=== PATIENT | female | born 1945 | race Caucasian/White ===

== ENCOUNTER 2018-06-13 23:02 | Emergency (ER) | payer MEDICARE, BC ==
[2018-06-13 23:02] VITALS: BMI 31.1
[2018-06-14] MEDS ORDERED: Sodium Chloride 0.9% 1,000 ML ONE (00:35)
--- NOTE | 2018-06-14 00:39 | C.PDOC ---
History Of Present Illness <Margy Morris - Last Filed: 06/14/18 00:39> <Jesus Bhakta - Last Filed: 06/14/18 02:31> 72 year old female presents to the ER after having a slip and fall 1 hour [employer]. Patient landed on her outstretched right arm which caused her to injury her right shoulder. Denies neck pain, headache, weakness, numbness, or other injuries. (Margy Morris) History Per: Patient History/Exam Limitations: no limitations Onset/Duration Of Symptoms: Hrs Current Symptoms Are (Timing): Still Present Exacerbating Factor(s): Strenuous Use Of Affected Area Recent travel outside of the [place]: No <Margy Morris - Last Filed: 06/14/18 00:39> <Jesus Bhakta - Last Filed: 06/14/18 02:31> Time Seen by Provider: 06/13/18 23:04 Chief Complaint (Nursing): Upper Extremity Problem/Injury Past Medical History Reviewed: Historical Data, Nursing Documentation, Vital Signs - Medical History PMH: Arthritis, Bronchitis, Depression, Gastritis, Gastrointestinal Ulcer, Osteoporosis Surgical History: Cholecystectomy, Endoscopy Family History: States: Unknown Family Hx - Social History Hx Tobacco Use: No Hx Alcohol Use: Yes Hx Substance Use: No - Immunization History Hx Tetanus Toxoid Vaccination: No Hx Influenza Vaccination: No <Margy Morris - Last Filed: 06/14/18 00:39> Vital Signs: Last Vital Signs Temp 98.0 F 06/14/18 02:00 Pulse 68 06/14/18 02:00 Resp 16 06/14/18 02:00 BP 145/82 06/14/18 02:00 Pulse Ox 99 06/14/18 02:00 - [facility] Procedures CLOSED ENDOSCOPIC BIOPSY OF LARGE INTESTINE (05/19/14) ESOPHAGOGASTRODUODENOSCOPY [EGD] W/CLOSED BIOPSY (01/19/15) LAPAROSCOPIC CHOLECYSTECTOMY (10/20/13) Review Of Systems Musculoskeletal: Positive for: Shoulder Pain. Negative for: Neck Pain Neurological: Negative for: Weakness, Numbness, Headache <Margy Morris - Last Filed: 06/14/18 00:39> Physical Exam - Physical Exam Appears: Non-toxic Skin: Normal Color, Warm, Dry Head: Atraumatic, Normacephalic Eye(s): bilateral: Normal Inspection Oral Mucosa: Moist Neck: Normal, Supple Chest: Symmetrical, No Tenderness Cardiovascular: Rhythm Regular Respiratory: Normal Breath Sounds, No Rales, No Rhonchi, No Wheezing Gastrointestinal/Abdominal: Soft, No Tenderness Back: No Vertebral Tenderness, No Paraspinal Tenderness Extremity: Capillary Refill (<2 seconds), Other (Tenderness to anterior right shoulder with swelling and deformity) Pulses: Left Radial: Normal, Right Radial: Normal Neurological/Psych: Oriented x3, Normal Speech, Normal Motor, Normal Sensation <Margy Morris - Last Filed: 06/14/18 00:39> ED Course And Treatment O2 Sat by Pulse Oximetry: 98 - Other Rad Right shoulder x-ray X-Ray: Interpreted by Me, Viewed By Me Interpretation: Full complete dislocation of the right shoulder. <Margy Morris - Last Filed: 06/14/18 00:39> Medical Decision Making <Margy Morris - Last Filed: 06/14/18 00:39> <Jesus Bhakta - Last Filed: 06/14/18 02:31> Medical Decision Making: Right shoulder x-ray ordered. Morphine administered. (Margy Morris) Disposition <Margy Morris - Last Filed: 06/14/18 00:39> Counseled Patient/Family Regarding: Diagnosis - Disposition Disposition Time: 02:30 - POA Present On Arrival: None <Jesus Bhakta - Last Filed: 06/14/18 02:31> - Disposition Referrals: [facility] [Outside] Dhiraj Pettit III, MD [Staff Provider] - Disposition: HOME/ ROUTINE Condition: IMPROVED Additional Instructions: Follow up with the Orthopedist within 1-2 days without fail. return if worsened. Prescriptions: Acetaminophen [Tylenol] 325 mg PO Q6 PRN #30 tab PRN Reason: Pain, Mild (1-3) traMADol [Ultram] 50 mg PO Q6 PRN #20 tab PRN Reason: Pain Instructions: Shoulder Dislocation, Moderate Sedation in Adults Forms: [facility] (Sinhala), Gen Discharge Inst Greenlandic - Clinical Impression Clinical Impression: Shoulder dislocation - PA / CAR SPOTTER / Resident Statement MD/DO has reviewed & agrees with the documentation as recorded. - Scribe Statement The provider has reviewed the documentation as recorded by the Scribe <Margy Morris - Last Filed: 06/14/18 00:39> <Jesus Bhakta - Last Filed: 06/14/18 02:31> - Scribe Statement Collin Carmen All medical record entries made by the Scribe were at my direction and personally dictated by me. I have reviewed the chart and agree that the record accurately reflects my personal performance of the history, physical exam, medical decision making, and the department course for this patient. I have also personally directed, reviewed, and agree with the discharge instructions and disposition. (Margy Morris)
[2018-06-14] MEDS ORDERED: Midazolam 2 MG/2 ML VIAL ONE (00:55)
[2018-06-14] MEDS ORDERED: Midazolam 2 MG/2 ML VIAL IVP ONE (00:56)
[2018-06-14] MEDS ORDERED: Propofol 10 mg/ml Inj (20 ML) ONE (00:56)
[2018-06-14] MEDS ORDERED: Morphine 4 MG/ML VIAL ONE (00:56)
[2018-06-14] MEDS ORDERED: Sodium Chloride 0.9% 1,000 ML IV ONE (00:58)
[2018-06-14 02:01] VITALS: BP 145/82; PULSE 68; RESP 16; TEMP 98; O2SAT 99
--- NOTE | 2018-06-14 08:21 | RAD ---
Date of service: 06/14/2018 PROCEDURE: Radiographs of the Right Shoulder HISTORY: post reduction COMPARISON: 06/13/2028 at 11:51 p.m. FINDINGS: BONES: No definite fracture identified. JOINTS: Status post close reduction anterior dislocation. Examination limited to a single view and is of limited sensitivity for the detection of fracture. SOFT TISSUES: Acromioclavicular articulation intact. OTHER FINDINGS: None. IMPRESSION: Successful close reduction. No definite fracture. Limited examination.
--- NOTE | 2018-06-14 08:25 | RAD ---
Date of service: 06/13/2018 PROCEDURE: Radiographs of the Right Shoulder HISTORY: shoulder injury, r/o dislocation COMPARISON: No prior. FINDINGS: BONES: No definite fracture identified. JOINTS: Anterior dislocation at the glenohumeral articulation. Acromioclavicular articulation is intact. SOFT TISSUES: Normal. OTHER FINDINGS: None. IMPRESSION: Anterior glenohumeral dislocation.
== END 2018-06-14 02:31 | disposition home or self-care (01) ==
LOC: C.ER 23:02
DX: S43.084A Other dislocation of right shoulder joint, initial encounter (principal); W01.0XXA Fall on same level from slipping, tripping and stumbling without subsequent striking against object, initial encounter
CPT/HCPCS: 23650; 73030; 94770; 96361; 96372; 96374; 96375; 99285; J2250; J2270; J7030

== ENCOUNTER 2018-12-17 10:40 | Emergency (ER) | payer MEDICARE, BC ==
[2018-12-17 10:40] VITALS: BMI 31.1
[2018-12-17 11:04] VITALS: RESP 20; TEMP 98.2; O2SAT 100
[2018-12-17] MEDS ORDERED: Sodium Chloride 0.9% 500 ML IV STA (11:25)
[2018-12-17] MEDS ORDERED: Morphine 4 MG/ML VIAL IV STA ×2 (11:25→12:34)
[2018-12-17] MEDS ORDERED: Sodium Chloride 0.9% 500 ML IV ONE (11:37)
[2018-12-17] MEDS ORDERED: Morphine 4 MG/ML VIAL ONE ×2 (11:37→12:37)
[2018-12-17] MEDS ORDERED: Lidocaine 2% PF (10 ml) Amp INJ ONE (12:18)
--- NOTE | 2018-12-17 12:24 | C.PDOC ---
History Of Present Illness 73 year old female brought to ED by EMS after falling while exercising with complaint of left should pain and upper lip pain. Patient states she tripped over some cords while exercising. Patient denies any syncope, vomiting, chest pain , and dizziness. <Salomón Beatty - Last Filed: 12/17/18 13:29> <Taye Bueno - Last Filed: 12/17/18 13:07> History Per: Patient History/Exam Limitations: no limitations Onset/Duration Of Symptoms: Mins Current Symptoms Are (Timing): Still Present Quality: "Pain" Additional History Per: EMS <Salomón Beatty - Last Filed: 12/17/18 13:29> Chief Complaint (Nursing): Upper Extremity Problem/Injury Past Medical History Vital Signs: Last Vital Signs Temp 98.2 F 12/17/18 10:56 Pulse 56 L 12/17/18 10:56 Resp 20 12/17/18 10:56 BP 166/90 H 12/17/18 10:56 Pulse Ox 100 12/17/18 10:56 - Medical History PMH: Arthritis, Bronchitis, Depression, Gastritis, Gastrointestinal Ulcer, Osteoporosis Denies: Chronic Kidney Disease Surgical History: Cholecystectomy, Endoscopy - [facility] Procedures CLOSED ENDOSCOPIC BIOPSY OF LARGE INTESTINE (05/19/14) ESOPHAGOGASTRODUODENOSCOPY [EGD] W/CLOSED BIOPSY (01/19/15) LAPAROSCOPIC CHOLECYSTECTOMY (10/20/13) Family History: States: Unknown Family Hx - Social History Hx Tobacco Use: No Hx Alcohol Use: Yes Hx Substance Use: No - Immunization History Hx Tetanus Toxoid Vaccination: Yes Hx Influenza Vaccination: Yes Hx Pneumococcal Vaccination: Yes <Taye Bueno - Last Filed: 12/17/18 13:07> Vital Signs: Last Vital Signs Temp 98.2 F 12/17/18 10:56 Pulse 56 L 12/17/18 10:56 Resp 20 12/17/18 10:56 BP 166/90 H 12/17/18 10:56 Pulse Ox 100 12/17/18 13:08 - [facility] Procedures CLOSED ENDOSCOPIC BIOPSY OF LARGE INTESTINE (05/19/14) ESOPHAGOGASTRODUODENOSCOPY [EGD] W/CLOSED BIOPSY (01/19/15) LAPAROSCOPIC CHOLECYSTECTOMY (10/20/13) <Salomón Beatty - Last Filed: 12/17/18 13:29> ED Course And Treatment O2 Sat by Pulse Oximetry: 100 <Taye Bueno - Last Filed: 12/17/18 13:07> Disposition Counseled Patient/Family Regarding: Diagnosis, Need For Followup <Taye Bueno - Last Filed: 12/17/18 13:07> <Salomón Beatty - Last Filed: 12/17/18 13:29> - Disposition Disposition: HOME/ ROUTINE Condition: IMPROVED Instructions: Shoulder Dislocation (DC) Forms: Gen Discharge Inst Barbadian, [facility] (Barbadian) Print Language: SENEGALESE - Clinical Impression Clinical Impression: Shoulder dislocation
[2018-12-17] MEDS ORDERED: Lidocaine 2% MPF (5 ml) Inj ONE ×2 (12:30→12:37)
--- NOTE | 2018-12-17 13:33 | RAD ---
Date of service: 12/17/2018 PROCEDURE: Radiographs of the Left Shoulder HISTORY: shoulder dislocation COMPARISON: No prior. FINDINGS: BONES: The left humeral head is anteriorly and inferiorly dislocated from the glenoid fossa. No gross fracture appreciated. Inferior glenoid rim cortical hyperostoses noted. JOINTS: Glenohumeral osteoarthrosis. No significant appearing left acromioclavicular joint arthrosis. SOFT TISSUES: Normal. OTHER FINDINGS: There is presence of aortic atherosclerotic calcification on x-ray. The pulmonary vascular markings do appear prominent on this exam-this may in part be technique-correlate clinically. IMPRESSION: Left humeral head anteroinferiorly dislocated from the glenoid fossa. No gross fracture appreciated. Other findings as above.
--- NOTE | 2018-12-17 13:38 | C.PDOC ---
History Of Present Illness 73 year old female brought to ED by EMS after falling while exercising with complaint of left should pain and upper lip injury. Patient states she tripped over some cords while exercising. She denies any syncope, LOC, vomiting, chest pain, and dizziness. Chief Complaint (Nursing): Upper Extremity Problem/Injury History Per: Patient History/Exam Limitations: no limitations Onset/Duration Of Symptoms: Mins Current Symptoms Are (Timing): Still Present Quality: "Pain" (left shoulder pain and upper lip pain) Additional History Per: EMS Past Medical History Reviewed: Historical Data, Nursing Documentation, Vital Signs Vital Signs: Last Vital Signs Temp 98.2 F 12/17/18 10:56 Pulse 56 L 12/17/18 10:56 Resp 20 12/17/18 10:56 BP 166/90 H 12/17/18 10:56 Pulse Ox 100 12/17/18 13:08 - Medical History PMH: Arthritis, Bronchitis, Depression, Gastritis, Gastrointestinal Ulcer, Osteoporosis Denies: Chronic Kidney Disease Surgical History: Cholecystectomy, Endoscopy - [facility] Procedures CLOSED ENDOSCOPIC BIOPSY OF LARGE INTESTINE (05/19/14) ESOPHAGOGASTRODUODENOSCOPY [EGD] W/CLOSED BIOPSY (01/19/15) LAPAROSCOPIC CHOLECYSTECTOMY (10/20/13) Family History: States: Unknown Family Hx - Social History Hx Tobacco Use: No Hx Alcohol Use: Yes Hx Substance Use: No - Immunization History Hx Tetanus Toxoid Vaccination: Yes Hx Influenza Vaccination: Yes Hx Pneumococcal Vaccination: Yes Review Of Systems Constitutional: Negative for: Fever, Chills, Weakness Eyes: Negative for: Redness, Other (scleral icterus) Cardiovascular: Negative for: Chest Pain, Light Headedness Respiratory: Negative for: Cough, Shortness of Breath Gastrointestinal: Negative for: Vomiting Genitourinary: Negative for: Dysuria, Hematuria Musculoskeletal: Positive for: Shoulder Pain. Negative for: Back Pain Neurological: Negative for: Weakness, Numbness, Dizziness, Other (syncope) Physical Exam - Physical Exam Appears: Well, Non-toxic, No Acute Distress Skin: Normal Color, Warm Head: Atraumatic, Normacephalic Eye(s): bilateral: Normal Inspection (no scleral icterus), PERRL, EOMI Oral Mucosa: Moist Lips: Swelling (and ecchymosis to upper lip), No Laceration Neck: Normal ROM, Supple Chest: Symmetrical, No Tenderness (Rib cage non-tender) Respiratory: No Accessory Muscle Use, Other (Normal inspiratory effort) Gastrointestinal/Abdominal: Soft, No Tenderness Extremity: Normal ROM (of left elbow), Tenderness (bony point tenderness to left shoulder, no other tenderness), Capillary Refill (< 2 sec), Deformity (Obvious deformity to left shoulder), No Other (No laceration to left shoulder) Extremity: Left: Other (Abrasion to left forearm) Pulses: Left Radial: Normal, Right Radial: Normal Neurological/Psych: Oriented x3, Normal Speech, Normal Cognition, Normal Motor (good strength in upper extremities), Normal Sensation (Distal sensation intact) ED Course And Treatment O2 Sat by Pulse Oximetry: 100 (RA) Pulse Ox Interpretation: Normal - Other Rad Left Shoulder X-Ray X-Ray: Interpreted by Me (@ 11:25) Interpretation: Dislocation of left shoulder. No fracture. Procedure: Blank - Time Out Time Out: Side verified, Site verified, Patient ID confirmed - Procedure Procedure:: Left shoulder reduction - Consent obtained: Consent obtained: Verbal - Performed by: Performed by:: Mid-level provider - Anesthetic Technique Anesthetic Technique: Regional block - Topical: Local/Regional Anesthetic:: Lidocaine 2% - Regional Nerve Block Regional Nerve Block:: Other (Intra-articular) - Location Location: Left, Shoulder - Description Discription of Procedure: 12/17/18 (External rotation) - Result Result: Successful - Post-Procedure Post-procedure:: Neurovascular status nml, Vital signs stable - Patient Tolerated Procedure Patient Tolerated Procedure:: Well Medical Decision Making Medical Decision Making: Impression: 73 year old with dislocated shoulder Plan: Patient given IV fluids , 4mg IV Zofran, and 4mg IV Morphine Lidocaine was ordered for intra-articular injection Shoulder was successfully reduced on 1st attempt. See procedure note Repeat X-rays shows: Interval reduction of the prior left shoulder dislocation. Anatomical alignment now present Disposition Counseled Patient/Family Regarding: Diagnosis, Need For Followup - Disposition Referrals: Dhiraj Pettit III, MD [Staff Provider] - Disposition: HOME/ ROUTINE Disposition Time: 14:05 Condition: IMPROVED Instructions: Shoulder Dislocation (DC) Forms: Gen Discharge Inst Kinyarwanda, [facility] (Kinyarwanda) Print Language: MOHAWK - Clinical Impression Clinical Impression: Shoulder dislocation, Contusion of lip, initial encounter - PA / NREMT / Resident Statement MD/DO has reviewed & agrees with the documentation as recorded. (Ying Lucio) - Scribe Statement The provider has reviewed the documentation as recorded by the Scribe (Ying Lang) All medical record entries made by the Scribe were at my direction and p ersonally dictated by me. I have reviewed the chart and agree that the record accurately reflects my personal performance of the history, physical exam, medical decision making, and the department course for this patient. I have also personally directed, reviewed, and agree with the discharge instructions and disposition.
--- NOTE | 2018-12-17 14:02 | RAD ---
Date of service: 12/17/2018 PROCEDURE: Radiographs of the Left Shoulder HISTORY: shoulder reduction COMPARISON: No prior. FINDINGS: BONES: No fracture lines appreciated. Prior anterior and inferior dislocated humeral head from the glenoid fossa has been reduced to normal anatomical alignment. JOINTS: Arthrosis as before. SOFT TISSUES: Normal. OTHER FINDINGS: None. IMPRESSION: Interval reduction of the prior left shoulder dislocation-anatomical alignment now present.
[2018-12-17 14:48] VITALS: BP 138/85; PULSE 62
== END 2018-12-17 14:51 | disposition home or self-care (01) ==
LOC: C.ER 10:40
DX: S00.531A Contusion of lip, initial encounter (principal); S43.005A Unspecified dislocation of left shoulder joint, initial encounter; W01.0XXA Fall on same level from slipping, tripping and stumbling without subsequent striking against object, initial encounter
CPT/HCPCS: 23655; 73030; 96374; 96375; 96376; 99284; J2270; J2405; J7040